=== PATIENT | female | born 1975 | race Native Hawaiian/Other Pacific Islander ===

== ENCOUNTER 2019-02-04 10:50 | Outpatient (CLI) | payer BC | END 2019-02-04 11:24 | disposition short-term general hospital (02) | LOC: AMB 10:50 | DX: M79.661 Pain in right lower leg (principal); S82.91XA Unspecified fracture of right lower leg, initial encounter for closed fracture; W18.30XA Fall on same level, unspecified, initial encounter; Y92.017 Garden or yard in single-family (private) house as the place of occurrence of the external cause | CPT/HCPCS: A0425; A0427 ==